=== PATIENT | male | born 1955 | race Caucasian/White ===

== ENCOUNTER 2017-02-28 10:00 | Emergency (ER) | payer SELFPAY ==
[~2017-02-28] VITALS: Ht 185.4 cm; Wt 70.4 kg
[2017-02-28] MEDS ORDERED: AMPICILLIN/SULBACTAM 3 GM in SODIUM CHLORIDE 0.9% 100 ML IVPB ONE (11:30)
[2017-02-28] MEDS ORDERED: IBUPROFEN 200 MG TABLET PO ONE (11:30)
[2017-02-28] MEDS ORDERED: OXYcodone/APAP 5/325MG TABLET PO ONE (11:30)
[2017-02-28] MEDS ORDERED: DIPH,PERTUSS(ACELL),TET VAC/PF 0.5 ML IM-VACC ONE ×2 (11:30→11:35)
[2017-02-28] MEDS ORDERED: LIDOCAINE 2%, 20ML SQ ONE (11:30)
[2017-02-28] MEDS ORDERED: OXYcodone/APAP 5/325MG TABLET ONE (11:35)
[2017-02-28] MEDS ORDERED: LIDOCAINE-MPF 2% ,5ML ONE (11:35)
[2017-02-28] MEDS ORDERED: IBUPROFEN 200 MG TABLET ONE ×2 (11:37→11:42)
== END 2017-02-28 14:33 | disposition left against medical advice (07) ==
LOC: ED 11:21
DX: L03.116 Cellulitis of left lower limb (principal); B19.20 Unspecified viral hepatitis C without hepatic coma
CPT/HCPCS: 10060; 36415; 76881; 85025; 90471; 90715; 96365; 99285; J0295

== ENCOUNTER 2017-03-09 01:10 | Emergency (ER) | payer OTHER ==
[~2017-03-09] VITALS: Ht 170.2 cm; Wt 72.3 kg
[2017-03-09] MEDS ORDERED: SODIUM CHLORIDE 0.9% 1,000ML IVBOLUS ONE ×2 (02:00→04:00)
[2017-03-09] MEDS ORDERED: AMPICILLIN/SULBACTAM 3 GM in SODIUM CHLORIDE 0.9% 100 ML IV ONE (02:00)
[2017-03-09] MEDS ORDERED: VANCOMYCIN PER PHARMACY IV ONE (02:00)
[2017-03-09] MEDS ORDERED: OXYcodone/APAP 10/325MG TABLET PO ONE (02:00)
[2017-03-09] MEDS ORDERED: VANCOMYCIN 1,400 MG in SODIUM CHLORIDE 0.9% 250 ML IV ONE (02:00)
[2017-03-09] MEDS ORDERED: SODIUM CHLORIDE FLUSH 10ML SYR IVF ONE (02:00)
[2017-03-09] MEDS ORDERED: OXYcodone/APAP 10/325MG TABLET ONE (02:14)
[2017-03-09 02:54] LABS: BLOOD UREA NITROGEN 21 mg/dL (7-18)
[2017-03-09] MEDS ORDERED: OMNIPAQUE 350 MG/ML, 100ML BOTTLE ONE (03:00)
[2017-03-09 03:45] VITALS: BP 111/70
[2017-03-09] MEDS ORDERED: LIDOCAINE 1%, 20ML ONE (04:27)
[2017-03-09] MEDS ORDERED: LIDOCAINE 1%, 20ML SQ ONE (04:30)
== END 2017-03-09 05:27 | disposition left against medical advice (07) ==
LOC: ED 02:59 → UNDOADMIN 04:10 → EDIP 04:10 → ED 05:27
DX: L02.416 Cutaneous abscess of left lower limb (principal); L03.116 Cellulitis of left lower limb
CPT/HCPCS: 10060; 36415; 73701; 80048; 82040; 83605; 84145; 85025; 87040; 87070; 87077; 87205; 93005; 96365; 96366; 96367; 99291; J0295; J3370; J7030; J7050; 87186; Q9967

== ENCOUNTER 2017-05-06 15:13 | Emergency (ER) | payer SELFPAY ==
[~2017-05-06] VITALS: Ht 182.9 cm; Wt 69.2 kg
[2017-05-06] MEDS ORDERED: OXYcodone/APAP 5/325MG TABLET PO ONE (16:00)
[2017-05-06] MEDS ORDERED: OXYcodone/APAP 5/325MG TABLET ONE (16:16)
[2017-05-06 17:51] VITALS: BP 121/73
== END 2017-05-06 17:53 | disposition home or self-care (01) ==
LOC: ED 17:00
DX: N45.1 Epididymitis (principal); K40.91 Unilateral inguinal hernia, without obstruction or gangrene, recurrent
CPT/HCPCS: 76870; 81003; 99285

== ENCOUNTER 2017-06-29 10:02 | Emergency (ER) | payer SELFPAY ==
[~2017-06-29] VITALS: Ht 182.9 cm; Wt 70.0 kg
[2017-06-29] MEDS ORDERED: SODIUM CHLORIDE FLUSH 10ML SYR IVF ONE (11:00)
[2017-06-29] MEDS ORDERED: AMPICILLIN/SULBACTAM 3 GM in SODIUM CHLORIDE 0.9% 100 ML IVPB ONE (11:00)
[2017-06-29] MEDS ORDERED: SODIUM CHLORIDE 0.9% 1,000ML IVBOLUS ONE (11:00)
[2017-06-29] MEDS ORDERED: ONDANSETRON ODT 4 MG PO ONE (11:00)
[2017-06-29] MEDS ORDERED: MORPHINE SULFATE 4 MG/ML, 1ML ONE ×2 (11:23→12:17)
[2017-06-29] MEDS ORDERED: ONDANSETRON 2MG/ML, 2ML ONE (11:23)
[2017-06-29] MEDS: MORPHINE SULFATE 4 MG/ML, 1ML IVPush PRN ×2 (11:29→12:18)
[2017-06-29 11:30] LABS: HEMATOCRIT 35.8 % (39.2-51.8); HEMOGLOBIN 12.2 g/dL (13.7-18.0); WHITE BLOOD COUNT 7.2 x10^3/uL (3.4-10)
[2017-06-29] MEDS ORDERED: ONDANSETRON 2MG/ML, 2ML IVPush ONE (12:00)
[2017-06-29 12:35] VITALS: BP 111/81
== END 2017-06-29 12:43 | disposition home or self-care (01) ==
LOC: ED 12:40
DX: L03.115 Cellulitis of right lower limb (principal); F17.210 Nicotine dependence, cigarettes, uncomplicated
CPT/HCPCS: 36415; 83605; 85025; 87040; 93971; 96365; 96375; 99285; J0295; J2405; J7030

== ENCOUNTER 2017-07-03 07:29 | Inpatient (IN) | payer SELFPAY ==
[~2017-07-03] VITALS: Ht 182.9 cm; Wt 72.0 kg
[2017-07-03] MEDS ORDERED: MORPHINE SULFATE 4 MG/ML, 1ML ONE ×2 (08:50→08:53)
[2017-07-03] MEDS ORDERED: morphine SULFATE 10 MG/ML, 1ML IVPush ONE (09:00)
[2017-07-03 09:15] LABS: HEMATOCRIT 35.8 % (39.2-51.8); HEMOGLOBIN 12.1 g/dL (13.7-18.0); WHITE BLOOD COUNT 7.4 x10^3/uL (3.4-10)
[2017-07-03 09:25] LABS: ASPARTATE AMINO TRANSFERASE 110 U/L (15-37); BLOOD UREA NITROGEN 23 mg/dL (7-18)
[2017-07-03] MEDS ORDERED: SODIUM CHLORIDE 0.9% 1,000ML IVBOLUS ONE (09:30)
[2017-07-03] MEDS ORDERED: LORazepam 1MG TABLET ONE (09:57)
[2017-07-03] MEDS ORDERED: LORazepam 1MG TABLET PO ONE (10:00)
[2017-07-03] MEDS ORDERED: AMPICILLIN/SULBACTAM 3 GM in SODIUM CHLORIDE 0.9% 100 ML IV ONE (10:00)
[2017-07-03 11:30] VITALS: BP 146/88
[2017-07-03] MEDS ORDERED: morphine SULFATE/PF 0.5 MG/ML, 10ML IV PRN (13:30)
[2017-07-03] MEDS: HYDROcodone/APAP 5/325 TABLET PO PRN ×2 (14:51→21:41)
[2017-07-03] MEDS: SODIUM CHLORIDE 0.9% 1,000 ML IV SCH ×2 (16:55→23:35)
[2017-07-03] MEDS ORDERED: DOCUSATE 100 MG CAPSULE PO PRN (17:00)
[2017-07-03] MEDS ORDERED: MAGNESIUM SULFATE PMX 2GM/50ML 50 ML IV ONE (17:00)
[2017-07-03] MEDS ORDERED: POLYETHYLENE GLYCOL 17 GM PACKET PO PRN (17:00)
[2017-07-03] MEDS ORDERED: PHARMACOKINETIC CONSULTATION MC ONE (17:00)
[2017-07-03] MEDS ORDERED: VANCOMYCIN PER PHARMACY MC PRN (17:00)
[2017-07-03] MEDS ORDERED: PHARMACOKINETIC MONITORING MC PRN (17:00)
[2017-07-03] MEDS ORDERED: BISACODYL 10 MG SUPP PR PRN (17:00)
[2017-07-03] MEDS: AMPICILLIN/SULBACTAM 3 GM in SODIUM CHLORIDE 0.9% 100 ML IV SCH ×2 (18:38→23:00)
[2017-07-03] MEDS: morphine SULFATE 10 MG/ML, 1ML IVPush PRN (18:59)
[2017-07-03 20:00] VITALS: BP 131/86
[2017-07-03] MEDS: ENOXAPARIN 40 MG/0.4 ML SQ SCH (21:40)
[2017-07-03] MEDS: VANCOMYCIN 1,400 MG in SODIUM CHLORIDE 0.9% 250 ML IV SCH (22:00)
[2017-07-04] MEDS: morphine SULFATE 10 MG/ML, 1ML IVPush PRN ×5 (01:22→21:39)
[2017-07-04 02:00] VITALS: BP 130/89
[2017-07-04] MEDS: HYDROcodone/APAP 5/325 TABLET PO PRN ×4 (03:50→20:34)
[2017-07-04 06:45] VITALS: BP 131/78
[2017-07-04] MEDS: SENNA/DOCUSATE TABLET PO SCH (09:40)
[2017-07-04 12:12] VITALS: BP 125/81
[2017-07-04] MEDS: AMPICILLIN/SULBACTAM 3 GM in SODIUM CHLORIDE 0.9% 100 ML IV SCH ×2 (14:42→20:31)
[2017-07-04] MEDS: NICOTINE 21 MG/24 HR PATCH.TD24 TD SCH (14:43)
[2017-07-04] MEDS: DIAZEPAM 5 MG TABLET PO PRN (14:43)
[2017-07-04] MEDS: SODIUM CHLORIDE 0.9% 1,000 ML IV SCH (14:43)
[2017-07-04] MEDS ORDERED: morphine SULFATE 10 MG/ML, 1ML IVPush PRN (15:00)
[2017-07-04] MEDS ORDERED: NICOTINE 21 MG/24 HR PATCH.TD24 TD SCH (16:00)
[2017-07-04 17:10] LABS: HEMATOCRIT 37.8 % (39.2-51.8); HEMOGLOBIN 12.7 g/dL (13.7-18.0); WHITE BLOOD COUNT 5.8 x10^3/uL (3.4-10)
[2017-07-04 17:20] LABS: BLOOD UREA NITROGEN 18 mg/dL (7-18)
[2017-07-04] MEDS: VANCOMYCIN 1,400 MG in SODIUM CHLORIDE 0.9% 250 ML IV SCH (17:20)
[2017-07-04 17:25] LABS: ASPARTATE AMINO TRANSFERASE 49 U/L (15-37)
[2017-07-04 17:28] LABS: IS PT STATUS REG ER OR PRE ER? NO
[2017-07-04] MEDS: ENOXAPARIN 40 MG/0.4 ML SQ SCH (20:31)
[2017-07-04 20:54] VITALS: BP 135/83
[2017-07-04 22:58] LABS: IS PT STATUS REG ER OR PRE ER? NO
[2017-07-05] MEDS: HYDROcodone/APAP 5/325 TABLET PO PRN ×5 (00:17→21:40)
[2017-07-05 00:49] VITALS: BP 130/85
[2017-07-05] MEDS: morphine SULFATE 10 MG/ML, 1ML IVPush PRN ×6 (01:45→22:44)
[2017-07-05] MEDS ORDERED: DIAZEPAM 10 MG TABLET ONE ×3 (03:07→20:05)
[2017-07-05] MEDS: DIAZEPAM 5 MG TABLET PO PRN ×2 (03:09→20:08)
[2017-07-05] MEDS: AMPICILLIN/SULBACTAM 3 GM in SODIUM CHLORIDE 0.9% 100 ML IV SCH ×4 (03:10→21:40)
[2017-07-05 05:20] LABS: IS PT STATUS REG ER OR PRE ER? NO
[2017-07-05 07:53] VITALS: BP 130/80
[2017-07-05] MEDS: SENNA/DOCUSATE TABLET PO SCH (10:12)
[2017-07-05] MEDS: VANCOMYCIN 1,400 MG in SODIUM CHLORIDE 0.9% 250 ML IV SCH (11:16)
[2017-07-05] MEDS: NICOTINE 21 MG/24 HR PATCH.TD24 TD SCH (15:00)
[2017-07-05 15:28] VITALS: BP 130/88
[2017-07-05 19:40] VITALS: BP 135/90
[2017-07-05] MEDS: ENOXAPARIN 40 MG/0.4 ML SQ SCH (21:40)
[2017-07-06 00:51] VITALS: BP 128/90
[2017-07-06] MEDS: HYDROcodone/APAP 5/325 TABLET PO PRN ×3 (01:27→10:39)
[2017-07-06] MEDS: AMPICILLIN/SULBACTAM 3 GM in SODIUM CHLORIDE 0.9% 100 ML IV SCH ×2 (02:37→09:39)
[2017-07-06] MEDS: VANCOMYCIN 1,400 MG in SODIUM CHLORIDE 0.9% 250 ML IV SCH (03:36)
[2017-07-06] MEDS: morphine SULFATE 10 MG/ML, 1ML IVPush PRN ×2 (03:36→08:16)
[2017-07-06] MEDS ORDERED: DIAZEPAM 10 MG TABLET ONE (05:33)
[2017-07-06] MEDS: DIAZEPAM 5 MG TABLET PO PRN (05:35)
[2017-07-06] MEDS ORDERED: MORPHINE SULFATE 4 MG/ML, 1ML ONE (08:11)
[2017-07-06] MEDS: SENNA/DOCUSATE TABLET PO SCH (08:16)
[2017-07-06 08:19] VITALS: BP 122/80
[2017-07-06] MEDS ORDERED: OXYcodone/APAP 5/325MG TABLET PO PRN (12:00)
== END 2017-07-06 12:30 | disposition left against medical advice (07) | DRG 603 ==
LOC: ED 08:28 → EDIP 09:37 → 3NW 11:06 → 4EST 18:11
PROVIDERS: ADMIT Internal Medicine; ATTEND Internal Medicine
PROC: 02HV33Z Insertion of Infusion Device into Superior Vena Cava, Percutaneous Approach (ICD-10-PCS; principal; 2017-07-04)
PROC: B5181ZA Fluoroscopy of Superior Vena Cava using Low Osmolar Contrast, Guidance (ICD-10-PCS; 2017-07-04)
DX: L03.115 Cellulitis of right lower limb (principal); J44.9 Chronic obstructive pulmonary disease, unspecified; B18.2 Chronic viral hepatitis C; D63.8 Anemia in other chronic diseases classified elsewhere; F12.90 Cannabis use, unspecified, uncomplicated; F17.200 Nicotine dependence, unspecified, uncomplicated; F41.9 Anxiety disorder, unspecified
CPT/HCPCS: 36415; 36569; 71010; 76937; 77001; 80053; 83605; 83735; 84100; 84484; 85025; 85610; 87040; 93005; 96361; 96374; J0295; J1650; J3370; C1751; J2270; J3475; J7030; J7050

== ENCOUNTER 2017-07-14 06:13 | Emergency (ER) | payer SELFPAY ==
[~2017-07-14] VITALS: Ht 182.9 cm; Wt 82.0 kg
[2017-07-14] MEDS ORDERED: IBUPROFEN 200 MG TABLET ONE (07:27)
[2017-07-14] MEDS ORDERED: IBUPROFEN 200 MG TABLET PO ONE (07:30)
[2017-07-14 07:32] VITALS: BP 135/85
== END 2017-07-14 07:37 | disposition home or self-care (01) ==
LOC: ED 07:15
DX: S70.02XA Contusion of left hip, initial encounter (principal); L03.115 Cellulitis of right lower limb; F17.200 Nicotine dependence, unspecified, uncomplicated; F12.10 Cannabis abuse, uncomplicated; W19.XXXA Unspecified fall, initial encounter; Y93.89 Activity, other specified; Y99.8 Other external cause status; Y92.89 Other specified places as the place of occurrence of the external cause
CPT/HCPCS: 99284